=== PATIENT | female | born 1945 | race Caucasian/White ===

== ENCOUNTER 2018-02-08 08:21 | Emergency (ER) | payer MEDICARE ==
[~2018-02-08 08:21] MED LIST: LISI40TA4 PO
[2018-02-08] MEDS ORDERED: CYCLOBENZAPRINE HCL 10 MG TABLET ONE (09:11)
[2018-02-08] MEDS ORDERED: KETOROLAC TROMETHAMINE 15MG/ML ONE (09:11)
[2018-02-08 10:15] LABS: APPEARANCE,URINE Cloudy (CLEAR); BILIRUBIN,URINE Negative (NEGATIVE); COLOR,URINE Yellow (YELLOW); GLUCOSE, URINE (UA) Negative (NEGATIVE); KETONES,URINE Negative (NEGATIVE); LEUKOCYTE ESTERASE ,URINE Large (NEGATIVE); NITRATE,URINE Negative (NEGATIVE); OCCULT BLOOD,URINE Moderate (NEGATIVE); PH,URINE 5.5 (5.0-8.0); PROTEIN,URINE Negative (NEGATIVE); UROBILINOGEN,URINE 0.2 mg/dL (0.2-1.0)
[2018-02-08 10:27] LABS: BACTERIA,URINE Many /HPF (None Seen); RBC,URINE 0-1 /HPF (0-1); SQUAMOUS EPITHELIAL CELL,UR Rare /HPF (0-2); WBC,URINE 51-100 /HPF (0-1)
== END 2018-02-08 11:07 | disposition home or self-care (01) ==
LOC: EDH 08:21
DX: M54.5 Low back pain (principal); N12 Tubulo-interstitial nephritis, not specified as acute or chronic; I10 Essential (primary) hypertension
CPT/HCPCS: 72192; 72220; 81001; 87088; 96372; 99285; J1885

== ENCOUNTER 2018-03-09 10:55 | Observation (INO) | payer MEDICARE ==
[~2018-03-09] VITALS: Ht 162.6 cm; Wt 95.3 kg
[2018-03-09 12:07] LABS: BASOPHILS % (AUTO) 0.3 % (0.0-5.0); EOSINOPHILS % (AUTO) 0.3 % (0.0-8.0); HEMATOCRIT 44.6 % (36-48); LYMPHOCYTES % (AUTO) 11.4 % (21.0-51.0); MEAN CORPUSCULAR HEMOGLOBIN 31.2 pg (27.0-33.0); MEAN CORPUSCULAR HGB CONC 33.1 g/dL (32.0-36.0); MEAN CORPUSCULAR VOLUME 94.4 fL (79-99); MONOCYTES % (AUTO) 3.1 % (3.0-13.0); NEUTROPHILS % (AUTO) 84.9 % (40.0-77.0); NUCLEATED RED BLOOD CELLS 0.1 % (0.0-0.19); PLATELET COUNT (AUTO) 242 K/uL (130-400); RED BLOOD CELL COUNT(AUTO) 4.73 MIL/uL (4.00-5.50); RED CELL DISTRIBUTION WIDTH 14.5 % (11.0-15.5); WHITE BLOOD COUNT (AUTO) 8.4 K/uL (4.8-10.8)
[2018-03-09 12:13] LABS: CREATININE 0.8 mg/dL (0.5-1.5); POTASSIUM 3.9 mmol/L (3.5-5.1)
[2018-03-09 12:17] LABS: ALBUMIN 3.5 g/dL (3.5-5.0); BILIRUBIN,DIRECT 0.2 mg/dL (0.0-0.3); BILIRUBIN,TOTAL 0.8 mg/dL (0.2-1.0)
[2018-03-09] MEDS ORDERED: MORPHINE-NS 50 MG/50 ML 50 ML IV PRN (14:15)
[2018-03-09] MEDS ORDERED: ONDANSETRON HCL 4 MG/2 ML VIAL IVP PRN (14:15)
[2018-03-09] MEDS ORDERED: ZOLPIDEM TARTRATE 5 MG TAB PO PRN (14:15)
[2018-03-09] MEDS ORDERED: NALOXONE HCL 0.4 MG/1 ML ML IVP PRN (14:15)
[2018-03-09] MEDS ORDERED: DiphenhydrAMINE HCL 50 MG/ML VIAL IVP PRN (14:15)
[2018-03-09] MEDS ORDERED: ACETAMINOPHEN-CODEINE 300/30MG TAB PO PRN (17:45)
[2018-03-09] MEDS ORDERED: FAMOTIDINE 20MG TAB 20 MG TAB ONE (20:53)
[2018-03-09] MEDS ORDERED: PREDNISONE 20 MG TABLET PO SCH (21:00)
[2018-03-09] MEDS: FAMOTIDINE 20MG TAB 20 MG TAB PO SCH (21:00)
[2018-03-09 21:05] VITALS: BP 191/104
[2018-03-09] MEDS ORDERED: SODIUM CHLORIDE 0.9% 10 ML VIAL IVP PRN (21:45)
[2018-03-09] MEDS ORDERED: LOTE55OS OD (22:26)
[2018-03-09] MEDS ORDERED: ACET1TAB25 PO (22:26)
[2018-03-09] MEDS ORDERED: PRED20TA3 PO (22:26)
[2018-03-09] MEDS ORDERED: BROM3DRO OD (22:26)
[2018-03-09 23:00] VITALS: BP 142/78
[2018-03-10 03:00] VITALS: BP 144/78
[2018-03-10] MEDS ORDERED: VITA100014 PO (04:42)
[2018-03-10] MEDS ORDERED: CRAN500T PO (04:42)
[2018-03-10] MEDS ORDERED: CHOL500050 PO (04:42)
[2018-03-10] MEDS ORDERED: MVIT PO (04:42)
[2018-03-10 05:19] LABS: HEMATOCRIT 39.6 % (36-48); MEAN CORPUSCULAR HEMOGLOBIN 31.3 pg (27.0-33.0); MEAN CORPUSCULAR HGB CONC 33.1 g/dL (32.0-36.0); MEAN CORPUSCULAR VOLUME 94.3 fL (79-99); NUCLEATED RED BLOOD CELLS 0.1 % (0.0-0.19); PLATELET COUNT (AUTO) 196 K/uL (130-400); RED CELL DISTRIBUTION WIDTH 14.6 % (11.0-15.5); WHITE BLOOD COUNT (AUTO) 8.2 K/uL (4.8-10.8)
[2018-03-10 05:31] LABS: ALBUMIN 2.9 g/dL (3.5-5.0); BILIRUBIN,DIRECT 0.2 mg/dL (0.0-0.3); CREATININE 0.7 mg/dL (0.5-1.5); POTASSIUM 3.2 mmol/L (3.5-5.1); TOTAL PROTEIN, SERUM 6.4 g/dL (6.0-8.3)
[2018-03-10 08:42] VITALS: BP 167/78
[2018-03-10] MEDS ORDERED: LIDOCAINE HCL-MPF 1% 2ML VIAL IVP PRN (08:45)
[2018-03-10] MEDS ORDERED: ACETAMINOPHEN 325 MG TAB PO PRN (08:45)
[2018-03-10] MEDS ORDERED: POTASSIUM CHLORIDE 10% ELIXIR 20 MEQ/15 ML UDCUP PO PRN (08:45)
[2018-03-10] MEDS ORDERED: POTASSIUM CHLORIDE 20MEQ/100ML 100 ML IV PRN (08:45)
[2018-03-10] MEDS: CRANBERRY 500 MG PO SCH (09:00)
[2018-03-10] MEDS: PROLENSA 0.07% OD SCH (09:00)
[2018-03-10] MEDS: FERROUS SULFATE 325 MG TABLET.DR PO SCH (11:20)
[2018-03-10] MEDS: FAMOTIDINE 20MG TAB 20 MG TAB PO SCH ×2 (11:20→22:43)
[2018-03-10] MEDS: PREDNISONE 20 MG TABLET PO SCH (11:20)
[2018-03-10] MEDS: LISINOPRIL 40 MG TABLET PO SCH (11:21)
[2018-03-10] MEDS: POTASSIUM CHLORIDE 20 MEQ ERTAB PO PRN ×3 (11:21→22:43)
[2018-03-10] MEDS: MULTIVITAMIN TABLET PO SCH (11:22)
[2018-03-10 12:43] VITALS: BP 154/86
[2018-03-10 17:26] VITALS: BP 162/93
[2018-03-10 19:25] VITALS: BP 163/89
[2018-03-10] MEDS ORDERED: MAGNESIUM CITRATE 296 ML SOLUTION PO ONE (21:15)
[2018-03-10 23:55] VITALS: BP 158/85
[2018-03-11 04:19] VITALS: BP 125/69
[2018-03-11 04:54] LABS: HEMATOCRIT 43.4 % (36-48); MEAN CORPUSCULAR HEMOGLOBIN 31.7 pg (27.0-33.0); MEAN CORPUSCULAR HGB CONC 33.7 g/dL (32.0-36.0); PLATELET COUNT (AUTO) 231 K/uL (130-400); RED BLOOD CELL COUNT(AUTO) 4.61 MIL/uL (4.00-5.50); RED CELL DISTRIBUTION WIDTH 14.4 % (11.0-15.5); WHITE BLOOD COUNT (AUTO) 8.7 K/uL (4.8-10.8)
[2018-03-11 05:06] LABS: CREATININE 0.6 mg/dL (0.5-1.5); POTASSIUM 4.1 mmol/L (3.5-5.1)
[2018-03-11 07:59] VITALS: BP 155/90
[2018-03-11] MEDS: CRANBERRY 500 MG PO SCH (09:00)
[2018-03-11] MEDS: PROLENSA 0.07% OD SCH (09:00)
[2018-03-11] MEDS ORDERED: IOHEXOL 350 MG/ML 100ML INFUS..BTL IV ONE (11:47)
[2018-03-11] MEDS: FAMOTIDINE 20MG TAB 20 MG TAB PO SCH (14:31)
[2018-03-11] MEDS: MULTIVITAMIN TABLET PO SCH (14:31)
[2018-03-11] MEDS: FERROUS SULFATE 325 MG TABLET.DR PO SCH (14:31)
[2018-03-11] MEDS: PREDNISONE 20 MG TABLET PO SCH (14:31)
[2018-03-11] MEDS: LISINOPRIL 40 MG TABLET PO SCH (14:32)
[2018-03-11 16:00] VITALS: BP 138/87
== END 2018-03-11 17:35 | disposition home or self-care (01) ==
LOC: EDH 10:55 → EDHIP 10:56 → 3DH 20:19
PROVIDERS: ADMIT Internal Medicine; ATTEND Internal Medicine
DX: N13.30 Unspecified hydronephrosis (principal); M54.5 Low back pain; E78.5 Hyperlipidemia, unspecified; I10 Essential (primary) hypertension; Z85.038 Personal history of other malignant neoplasm of large intestine; Z87.440 Personal history of urinary (tract) infections; Z85.3 Personal history of malignant neoplasm of breast; Z87.891 Personal history of nicotine dependence; Z92.21 Personal history of antineoplastic chemotherapy
CPT/HCPCS: 36415 ×3; 74176; 74400; 80048 ×3; 80076 ×2; 85025; 85027 ×2; 99285; G0378 ×55; Q9967

== ENCOUNTER 2019-09-28 01:40 | Emergency (ER) | payer MEDICARE ==
[~2019-09-28 01:40] MED LIST changes: +ACET1TAB25 PO; +BROM3DRO OD; +CHOL500050 PO; +CRAN500T PO; +LOTE55OS OD; +MVIT PO; +PRED20TA3 PO; +VITA100014 PO
[2019-09-28 03:13] LABS: BASOPHILS % (AUTO) 0.6 % (0.0-5.0); EOSINOPHILS % (AUTO) 1.9 % (0.0-8.0); HEMATOCRIT 42.5 % (36-48); LYMPHOCYTES % (AUTO) 18.4 % (21.0-51.0); MEAN CORPUSCULAR HEMOGLOBIN 30.5 pg (27.0-33.0); MEAN CORPUSCULAR HGB CONC 31.8 g/dL (32.0-36.0); MEAN CORPUSCULAR VOLUME 95.9 fL (79-99); MONOCYTES % (AUTO) 9.4 % (3.0-13.0); NEUTROPHILS % (AUTO) 68.9 % (40.0-77.0); PLATELET COUNT (AUTO) 232 K/uL (130-400); RED BLOOD CELL COUNT(AUTO) 4.43 MIL/uL (4.00-5.50); RED CELL DISTRIBUTION WIDTH 14.1 % (11.0-15.5); WHITE BLOOD COUNT (AUTO) 8.6 K/uL (4.8-10.8)
[2019-09-28 03:23] LABS: CREATININE 1.2 mg/dL (0.5-1.5)
[2019-09-28 03:27] LABS: ALBUMIN 3.2 g/dL (3.5-5.0); BILIRUBIN,TOTAL 0.4 mg/dL (0.2-1.0); TOTAL PROTEIN, SERUM 7.3 g/dL (6.0-8.3)
[2019-09-28 03:35] LABS: APPEARANCE,URINE Clear (CLEAR); BILIRUBIN,URINE Negative (NEGATIVE); COLOR,URINE Yellow (YELLOW); GLUCOSE, URINE (UA) Negative (NEGATIVE); KETONES,URINE Negative (NEGATIVE); LEUKOCYTE ESTERASE ,URINE Small (NEGATIVE); NITRATE,URINE Negative (NEGATIVE); OCCULT BLOOD,URINE Large (NEGATIVE); PROTEIN,URINE Negative (NEGATIVE); UROBILINOGEN,URINE 0.2 mg/dL (0.2-1.0)
[2019-09-28 03:36] LABS: INR 0.93 (0.85-1.15); PARTIAL THROMBOPLASTIN TIME 27.4 SEC (26.3-35.5); PROTHROMBIN TIME 10.1 SEC (9.6-11.6)
[2019-09-28 03:46] LABS: BACTERIA,URINE Few /HPF (None Seen)
[2019-09-28] MEDS ORDERED: CLINDAMYCIN HCL 150 MG CAP ONE (04:38)
== END 2019-09-28 04:47 | disposition home or self-care (01) ==
LOC: EDH 01:40
DX: T81.31XA Disruption of external operation (surgical) wound, not elsewhere classified, initial encounter (principal); N39.0 Urinary tract infection, site not specified; I10 Essential (primary) hypertension
CPT/HCPCS: 36415; 74176; 80053; 81001; 82550; 84484; 85025; 85610; 85730; 86850; 86900; 86901; 87077; 87088; 87186; 93005

== ENCOUNTER 2020-02-03 09:00 | Day surgery (SDC) | payer MEDICARE ==
[2020-01-28 12:28] LABS: BASOPHILS % (AUTO) 0.8 % (0.0-5.0); LYMPHOCYTES % (AUTO) 22.1 % (21.0-51.0); MEAN CORPUSCULAR HEMOGLOBIN 28.4 pg (27.0-33.0); MEAN CORPUSCULAR HGB CONC 30.5 g/dL (32.0-36.0); MEAN CORPUSCULAR VOLUME 92.9 fL (79-99); PLATELET COUNT (AUTO) 376 K/uL (130-400); RED BLOOD CELL COUNT(AUTO) 4.09 MIL/uL (4.00-5.50); RED CELL DISTRIBUTION WIDTH 17.2 % (11.0-15.5); WHITE BLOOD COUNT (AUTO) 7.5 K/uL (4.8-10.8)
[2020-01-28 12:36] LABS: CREATININE 1.4 mg/dL (0.5-1.5); POTASSIUM 4.7 mmol/L (3.5-5.1)
[2020-01-28 12:38] LABS: INR 0.99 (0.85-1.15); PARTIAL THROMBOPLASTIN TIME 27.1 SEC (26.3-35.5); PROTHROMBIN TIME 10.7 SEC (9.6-11.6)
[2020-01-28 12:41] LABS: APPEARANCE,URINE TURBID (CLEAR); BILIRUBIN,URINE SMALL (NEGATIVE); COLOR,URINE BROWN (YELLOW); GLUCOSE, URINE (UA) NEGATIVE (NEGATIVE); KETONES,URINE NEGATIVE (NEGATIVE); LEUKOCYTE ESTERASE ,URINE MODERATE (NEGATIVE); NITRATE,URINE NEGATIVE (NEGATIVE); OCCULT BLOOD,URINE LARGE (NEGATIVE); PH,URINE 5.5 (5.0-8.0); PROTEIN,URINE 100 mg/dL (NEGATIVE); UROBILINOGEN,URINE 0.2 mg/dL (0.2-1.0)
[2020-01-28 12:50] LABS: BACTERIA,URINE Few /HPF (None Seen); MUCUS,URINE Few LPF (None Seen); RBC,URINE TNTC /HPF (0-1); SQUAMOUS EPITHELIAL CELL,UR Rare /HPF (0-2)
[2020-01-30 10:06] VITALS: BP 119/53
[~2020-02-03] VITALS: Ht 160 cm; Wt 93.2 kg
[2020-02-03] VITALS (16 sets, daily range): BP systolic 109–118; BP diastolic 50–74
[~2020-02-03 09:00] MED LIST changes: -ACET1TAB25 PO; -BROM3DRO OD; -CHOL500050 PO; +CYAN250010 PO; +FURO40TA5 PO; -LOTE55OS OD; +METO-391 PO; -PRED20TA3 PO
[2020-02-03] MEDS ORDERED: LACTATED RINGERS 1000ML 1,000 ML IV ONE (09:26)
[2020-02-03] MEDS: CEFTRIAXONE SODIUM 1 GM ONE ×2 (10:34→12:40)
[2020-02-03] MEDS ORDERED: IOHEXOL-350 50ML VIAL IV ONE (11:29)
[2020-02-03] MEDS ORDERED: SUCCINYLCHOLINE 200MG/10ML SYR ONE ×2 (12:34→12:36)
[2020-02-03] MEDS ORDERED: LIDOCAINE PF 2% 5ML ABBOJECT ONE ×2 (12:34→12:35)
[2020-02-03] MEDS ORDERED: DEXAMETHASONE SOD PHOSPHATE 10MG/ML 1ML VIAL ONE ×2 (12:34→13:05)
[2020-02-03] MEDS ORDERED: NEOSTIGMINE 5MG/5ML SYR IV ONE (12:35)
[2020-02-03] MEDS ORDERED: ROCURONIUM 10MG/1ML SYR 10 MG/ML ML ONE (12:35)
[2020-02-03] MEDS ORDERED: FENTANYL CITRATE PF 50 MCG/1 ML 2ML VIAL ONE (12:35)
[2020-02-03] MEDS ORDERED: PROPOFOL 10 MG/ML 20ML VIAL IV ONE (12:35)
[2020-02-03] MEDS ORDERED: GLYCOPYRROLATE 1 MG/5 ML SYRINGE ONE (12:35)
[2020-02-03] MEDS ORDERED: BACITRACIN 28.4 GM OINT TP ONE (13:36)
--- NOTE | 2020-02-03 14:50 | NUR ---
POST RECEIVED PT FROM PACU. S/P CYSTOSCOPY WITH LEFT URETERAL STENT /REPAIR PERIANAL LACERATION, BULKY DRESSING DRY AND INTACT WITH SLIGHT BLEEDING NOTED. PT AWAKE AND ALERT, VS STABLE ON ARRIVAL. CALL LIGHT WITHIN REACH. [address] DRAINING BLOOD TINGE URINE . PT DENIED ANY PAIN OR DISCOMFORTS.
--- NOTE | 2020-02-03 15:35 | NUR ---
dc pt dc home via wc, no distress noted. perianal dressing dry and intact, fc in place with leg bag draining blood tinge urine. . extra mcdonnell bag provided to patient. pt accompanied by daughter Ruthie. rx given to patient with copy of all dc intructions.
== END 2020-02-03 15:35 | disposition home or self-care (01) ==
LOC: DAH 09:00
PROVIDERS: ATTEND Urology
DX: N13.1 Hydronephrosis with ureteral stricture, not elsewhere classified (principal); I10 Essential (primary) hypertension; Z85.038 Personal history of other malignant neoplasm of large intestine; Z79.899 Other long term (current) drug therapy; Z87.891 Personal history of nicotine dependence; Z20.828 Contact with and (suspected) exposure to other viral communicable diseases
CPT/HCPCS: 12002; 36415; 52332; 71045; 74420; 80048; 81001; 85025; 85610; 85730; 87088; 93005; A4215; A4221; A4222; A4223; A4344; A4358; A4600; A4657; A4663; A5113 ×2; A6260; C1758; C1769; C2617; C9803; J0330 ×2; J0696; J1100 ×2; J2001 ×2; J2704; J2710; J3010; J3490; J7120 ×2; Q9967; U0003

== ENCOUNTER 2020-06-08 07:30 | Day surgery (SDC) | payer MEDICARE ==
[2020-06-02 11:48] LABS: BASOPHILS % (AUTO) 0.4 % (0.0-5.0); EOSINOPHILS % (AUTO) 1.1 % (0.0-8.0); HEMATOCRIT 34.8 % (36-48); LYMPHOCYTES % (AUTO) 13.2 % (21.0-51.0); MEAN CORPUSCULAR HEMOGLOBIN 26.3 pg (27.0-33.0); MEAN CORPUSCULAR HGB CONC 30.7 g/dL (32.0-36.0); MEAN CORPUSCULAR VOLUME 85.5 fL (79-99); MONOCYTES % (AUTO) 10.4 % (3.0-13.0); NEUTROPHILS % (AUTO) 74.2 % (40.0-77.0); PLATELET COUNT (AUTO) 330 K/uL (130-400); RED BLOOD CELL COUNT(AUTO) 4.07 MIL/uL (4.00-5.50); RED CELL DISTRIBUTION WIDTH 15.1 % (11.0-15.5)
[2020-06-02 11:51] LABS: BILIRUBIN,URINE NEGATIVE (NEGATIVE); COLOR,URINE YELLOW (YELLOW); GLUCOSE, URINE (UA) NEGATIVE (NEGATIVE); KETONES,URINE NEGATIVE (NEGATIVE); LEUKOCYTE ESTERASE ,URINE LARGE (NEGATIVE); NITRATE,URINE POSITIVE (NEGATIVE); OCCULT BLOOD,URINE LARGE (NEGATIVE); PROTEIN,URINE 100 mg/dL (NEGATIVE); UROBILINOGEN,URINE 0.2 mg/dL (0.2-1.0)
[2020-06-02 11:54] LABS: APPEARANCE,URINE TURBID (CLEAR)
[2020-06-02 12:07] LABS: CREATININE 1.2 mg/dL (0.5-1.5); POTASSIUM 3.7 mmol/L (3.5-5.1)
[2020-06-02 12:45] LABS: BACTERIA,URINE Many /HPF (None Seen); SQUAMOUS EPITHELIAL CELL,UR Few /HPF (0-2); WBC,URINE TNTC /HPF (0-1)
[2020-06-06 14:17] VITALS: BP_SYST 174; BP_SYST 194; BP_DIAS 80; BP_DIAS 88
[~2020-06-08] VITALS: Ht 160 cm; Wt 96.2 kg
[2020-06-08] VITALS (14 sets, daily range): BP systolic 131–183; BP diastolic 52–82
[2020-06-08] MEDS: CEFTRIAXONE SODIUM 1 GM IVP SCH ×2 (06:00→09:05)
[~2020-06-08 07:30] MED LIST changes: +LACTATED RINGERS 1000ML 1,000 ML IV ONE; -LISI40TA4 PO; +LISI40TA9 PO; +NITR100C4 PO; -VITA100014 PO; +VITAD50000 PO
[2020-06-08] MEDS ORDERED: IOHEXOL-350 50ML VIAL IV ONE (08:06)
[2020-06-08] MEDS ORDERED: MIDAZOLAM HCL 1 MG/ML 2ML VIAL ONE (08:48)
[2020-06-08] MEDS ORDERED: FENTANYL CITRATE PF 50 MCG/1 ML 2ML VIAL ONE (08:48)
[2020-06-08] MEDS ORDERED: DEXAMETHASONE SOD PHOSPHATE 10MG/ML 1ML VIAL ONE (08:48)
[2020-06-08] MEDS ORDERED: PROPOFOL 10 MG/ML 20ML VIAL IV ONE (08:48)
[2020-06-08] MEDS ORDERED: ONDANSETRON HCL 4 MG/2 ML VIAL ONE (08:48)
[2020-06-08] MEDS ORDERED: SUCCINYLCHOLINE 200MG/10ML SYR ONE (08:48)
[2020-06-08] MEDS ORDERED: LIDOCAINE PF 2% 5ML ABBOJECT ONE (08:48)
== END 2020-06-08 11:05 | disposition home or self-care (01) ==
LOC: DAH 07:30
PROVIDERS: ATTEND Urology
DX: N13.5 Crossing vessel and stricture of ureter without hydronephrosis (principal); I10 Essential (primary) hypertension; Z85.048 Personal history of other malignant neoplasm of rectum, rectosigmoid junction, and anus; E66.01 Morbid (severe) obesity due to excess calories; Z20.828 Contact with and (suspected) exposure to other viral communicable diseases; Z79.899 Other long term (current) drug therapy
CPT/HCPCS: 52332; 74420; A4215; A4216; A4221; A4222; A4223; A4358; A4600; A4663; C1758; C1769; C2617; C9803; J0330; J0696; J1100; J2001; J2250; J2405; J2704; J3010; J7030; J7120; Q9967; U0003

== ENCOUNTER 2020-08-17 08:39 | Day surgery (SDC) | payer MEDICARE ==
[2020-08-11 11:49] LABS: BASOPHILS % (AUTO) 0.7 % (0.0-5.0); EOSINOPHILS % (AUTO) 2.6 % (0.0-8.0); HEMATOCRIT 38.8 % (36-48); LYMPHOCYTES % (AUTO) 28.4 % (21.0-51.0); MEAN CORPUSCULAR HEMOGLOBIN 27.8 pg (27.0-33.0); MEAN CORPUSCULAR HGB CONC 30.9 g/dL (32.0-36.0); MEAN CORPUSCULAR VOLUME 89.8 fL (79-99); MONOCYTES % (AUTO) 10.3 % (3.0-13.0); NEUTROPHILS % (AUTO) 57.6 % (40.0-77.0); PLATELET COUNT (AUTO) 276 K/uL (130-400); RED BLOOD CELL COUNT(AUTO) 4.32 MIL/uL (4.00-5.50); RED CELL DISTRIBUTION WIDTH 19.3 % (11.0-15.5); WHITE BLOOD COUNT (AUTO) 7.3 K/uL (4.8-10.8)
[2020-08-11 12:05] LABS: POTASSIUM 4.3 mmol/L (3.5-5.1)
[2020-08-11 12:32] LABS: APPEARANCE,URINE Cloudy (CLEAR); BILIRUBIN,URINE Negative (NEGATIVE); COLOR,URINE Yellow (YELLOW); GLUCOSE, URINE (UA) Negative (NEGATIVE); KETONES,URINE Negative (NEGATIVE); LEUKOCYTE ESTERASE ,URINE Moderate (NEGATIVE); NITRATE,URINE Negative (NEGATIVE); OCCULT BLOOD,URINE Small (NEGATIVE); PROTEIN,URINE POS 2+ mg/dL (NEGATIVE); UROBILINOGEN,URINE 0.2 mg/dL (0.2-1.0)
[2020-08-11 12:45] LABS: BACTERIA,URINE Rare /HPF (None Seen); SQUAMOUS EPITHELIAL CELL,UR Few /HPF (0-2); WBC,URINE 0-1 /HPF (0-1)
[2020-08-14 15:28] VITALS: BP 192/87
[2020-08-17] VITALS (17 sets, daily range): BP systolic 128–156; BP diastolic 57–71
[~2020-08-17] VITALS: Ht 160 cm; Wt 94.7 kg
[~2020-08-17 08:39] MED LIST changes: +CEFTRIAXONE 1G VIAL IVP SCH; -CRAN500T PO; -CYAN250010 PO; -FURO40TA5 PO; -LACTATED RINGERS 1000ML 1,000 ML IV ONE; +MACR100 PO; -MVIT PO; -NITR100C4 PO; -VITAD50000 PO
[2020-08-17] MEDS ORDERED: LACTATED RINGERS 1000ML 1,000 ML IV ONE (09:52)
[2020-08-17] MEDS ORDERED: LIDOCAINE PF 100MG/5ML (2%) SYRINGE 5ML ONE (11:02)
[2020-08-17] MEDS ORDERED: GLYCOPYRROLATE 1 MG/5 ML SYRINGE ONE ×2 (11:02→11:37)
[2020-08-17] MEDS ORDERED: ONDANSETRON 4MG INJ ONE (11:02)
[2020-08-17] MEDS ORDERED: MIDAZOLAM HCL 1 MG/ML 2ML VIAL ONE (11:02)
[2020-08-17] MEDS ORDERED: DEXAMETHASONE SOD PHOSPHATE 10MG/ML 1ML VIAL ONE (11:02)
[2020-08-17] MEDS ORDERED: FENTANYL CITRATE PF 50 MCG/1 ML 2ML VIAL ONE (11:03)
[2020-08-17] MEDS ORDERED: PROPOFOL 10 MG/ML 20ML VIAL IV ONE (11:03)
[2020-08-17] MEDS ORDERED: ROCURONIUM 10MG/1ML SYR 10 MG/ML ML ONE (11:36)
[2020-08-17] MEDS ORDERED: NEOSTIGMINE 5MG/5ML SYR IV ONE (11:37)
[2020-08-17] MEDS ORDERED: IOHEXOL-350 50ML VIAL IV ONE (12:16)
== END 2020-08-17 14:20 | disposition home or self-care (01) ==
LOC: DAH 08:39
PROVIDERS: ATTEND Urology
DX: N13.1 Hydronephrosis with ureteral stricture, not elsewhere classified (principal); Z20.822 Contact with and (suspected) exposure to COVID-19; I10 Essential (primary) hypertension; E66.9 Obesity, unspecified; Z98.890 Other specified postprocedural states; Z80.0 Family history of malignant neoplasm of digestive organs; Z92.3 Personal history of irradiation
CPT/HCPCS: 36415; 52332; 74018; 80048; 81001; 85025; 87077; 87088; 87186; 93005; A4215; A4221; A4222; A4223; A4358; A4600; A4663; A6260; C1758; C1769 ×2; C2617; C9803; J0696; J1100; J2001; J2250; J2405; J2704; J2710; J3010; J3490 ×2; J7120; U0003; Q9967